=== PATIENT | male | born 1955 | race Caucasian/White ===

== ENCOUNTER → 2023-08-22 | Emergency (ER) | payer OTHER, MEDICARE ==
[~2023-08-22] MED LIST: AMOX/K CLAV 875 MG TAB ONE
--- NOTE | 2023-08-22 05:19 | EDPHYS ---
Physician Documentation [facility] Name: Juan Puga Age: 68 yrs Sex: Male : 1955 Arrival Date: 08/22/2023 Time: 04:53 Bed IW1 Private MD: ED Physician Rmaan Presley HPI: 08/22 05:22 This 68 yrs old Male presents to ER via Ambulatory with complaints of Jaw ec2 Pain, Toothache, Facial Swelling. 05:22 Patient arrives today for evaluation of right upper dental pain. Patient reports has ec2 been experiencing a couple days of worsening pain. States that he has noticed some redness on the face as well. Patient reports no fevers or chills, no nausea vomiting, no cough or cold symptoms. Does report a history of dental caries, previous dental extractions, most recently was on amoxicillin and had teeth pulled approximately 8 weeks ago. Patient reports that he is scheduled to have all of his teeth pulled at some point.. Historical: - Allergies: 05:08 No Known Allergies; pf1 - PMHx: 05:08 dental caries; Hypertensive disorder; Hypercholesterolemia; bladder cancer; pf1 - PSHx: 05:08 tumor removed from bladder; pf1 - Immunization history:: Adult Immunizations up to date, 3 doses of Moderna Last tetanus immunization: > 10 years ago Flu vaccine is not up to date. - Social history:: Smoking status: Patient reports the use of cigarette tobacco products, smokes one-half pack cigarettes per day, Patient/guardian denies using alcohol, street drugs. ROS: 05:22 Constitutional: as per hpi ec2 Exam: 05:22 Constitutional: GEN: NAD Head: atraumatic Eyes: EOMI Ears: External ears are normal. ec2 Mouth: Right upper gumline with erythema noted, significant dental caries noted throughout the mouth. Face: Right maxillary very small amount of erythema, no significant induration, no tenderness to palpation. CV: regular rate LUNGS: no respiratory distress ABD: non-distended SKIN: no evidence of rashes MSK: no evidence of trauma NEURO: moves all extremities equally Vital Signs: 05:00 BP 162 / 88; Pulse 87; Resp 16; Temp 97; Pulse Ox 100% on R/A; Weight 77.11 kg; Height pf1 5 ft. 11 in. ; Pain 5/10; 05:00 Body Mass Index 23.71 (77.11 kg, 180.34 cm) pf1 05:00 Pain Scale: Adult pf1 MDM: 05:17 Patient medically screened. ec2 05:22 Data reviewed: vital signs. ED course: Patient arrives today for evaluation of dental ec2 concerns. Examination remarkable for HEENT findings as noted above. Will start the patient on Augmentin and have him follow-up with a dentist. Suspect dental abscess causing patient's findings today. I considered other processes such as deep space infections, maxillary abscesses, patient otherwise without systemic signs and symptoms and I do not feel he would benefit from any lab work such as CBC or BMP and do not feel he has been for many CT scan of the face. Patient discharged home, return precautions given. . Administered Medications: 05:24 Drug: Amoxicillin-Clavulanate PO 875 mg PO once Route: PO; pf1 05:30 Follow up: Response: No adverse reaction pf1 Disposition Summary: 08/22/23 05:18 Discharge Ordered Notes: Location: Home ec2 Condition: Stable ec2 Diagnosis - Dental Abscess ec2 Followup: ec2 - With: Private Physician - When: - Reason: Re-evaluation by your physician Discharge Instructions: - Discharge Summary Sheet ec2 - Dental Abscess, [id number] ec2 Forms: - Medication Reconciliation Form ec2 - Thank You Letter ec2 - Antibiotic Education ec2 - Prescription Opioid Use ec2 - Patient Portal Instructions ec2 - Leadership Thank You Letter ec2 Prescriptions: - Augmentin 875-125 mg Oral Tablet - take 1 tablet ORAL route every 12 hours for 10 days; 20 tablet; Refills: 0, ec2 Product Selection Permitted Signatures: Lynsey Gonzales RN RN pf1 Raman Presley MD MD ec2
--- NOTE | 2023-08-22 05:19 | ER ---
Nurse's Notes [facility] Name: Juan Puga Age: 68 yrs Sex: Male : 1955 Arrival Date: 08/22/2023 Time: 04:53 Bed IW1 Private MD: Diagnosis: Dental Abscess Presentation: 08/22 05:00 Chief complaint: Patient states: right upper tooth pain 5 with swelling that radiates pf1 to right ear,onset 2 days. Patient stated completed antibiotics for tooth infection on July 06, 2023. Patient stated took Tylenol 325mg at 0100 this AM. Coronavirus screen: Vaccine status: Client denies travel out of the [place] in the last 14 days. At this time, the client does not indicate any symptoms associated with coronavirus-19. Ebola Screen: Patient negative for fever greater than or equal to 101.5 degrees Fahrenheit, and additional compatible Ebola Virus Disease symptoms. Initial Sepsis Screen: Does the patient meet any 2 criteria? No. Patient's initial sepsis screen is negative. Does the patient have a suspected source of infection? No. Patient's initial sepsis screen is negative. Risk Assessment: Do you want to hurt yourself or someone else? Patient reports no desire to harm self or others. 05:00 Method Of Arrival: Ambulatory pf1 05:00 Acuity: CESILIA 5 pf1 Triage Assessment: 05:15 General: see nurse assessment. pf1 Historical: - Allergies: 05:08 No Known Allergies; pf1 - PMHx: 05:08 dental caries; Hypertensive disorder; Hypercholesterolemia; bladder cancer; pf1 - PSHx: 05:08 tumor removed from bladder; pf1 - Immunization history:: Adult Immunizations up to date, 3 doses of Moderna Last tetanus immunization: > 10 years ago Flu vaccine is not up to date. - Social history:: Smoking status: Patient reports the use of cigarette tobacco products, smokes one-half pack cigarettes per day, Patient/guardian denies using alcohol, street drugs. Screenin:14 [facility] ED Fall Risk Assessment (Adult) History of falling in the last 3 months, pf1 including since admission No falls in past 3 months (0 pts) Confusion or Disorientation No (0 pts) Intoxicated or Sedated No (0 pts) Impaired Gait No (0 pts) Mobility Assist Device Used No (0 pt) Altered Elimination No (0 pt) Score/Fall Risk Level 0 - 2 = Low Risk Oriented to surroundings, Maintained a safe environment, Educated pt \T\ family on fall prevention, incl call for assistance when getting out of bed, Assessed \T\ reinforced patient's understanding of fall precautions, Provided non-skid footwear, Hourly rounding (assess needs \T\ fall precautionary measures) done, Used ambulatory aids as needed (educated on \T\ assisted with), Used gait belt as appropriate. Abuse screen: Denies threats or abuse. Nutritional screening: No deficits noted. Tuberculosis screening: No symptoms or risk factors identified. Assessment: 05:12 General: Appears in no apparent distress. comfortable, well groomed, well developed, pf1 Behavior is calm, cooperative, appropriate for age, quiet. Pain: Complains of pain in right upper mouth that radiates to right ear. 05:13 Pain: Pain currently is 5 out of 10 on a pain scale. Pain began 2-3 days ago. Neuro: No pf1 deficits noted. Level of Consciousness is awake, alert, obeys commands, Oriented to person, place, time, situation. Cardiovascular: No deficits noted. Capillary refill < 3 seconds Patient's skin is warm and dry. Respiratory: No deficits noted. Airway is patent Respiratory effort is even, unlabored, Respiratory pattern is regular, symmetrical. GI: No deficits noted. No signs and/or symptoms were reported involving the gastrointestinal system. : No deficits noted. No signs and/or symptoms were reported regarding the genitourinary system. EENT: Reports pain in right upper mouth that radiate to right ear. Derm: No deficits noted. No signs and/or symptoms reported regarding the dermatologic system. Vital Signs: 05:00 BP 162 / 88; Pulse 87; Resp 16; Temp 97; Pulse Ox 100% on R/A; Weight 77.11 kg; Height pf1 5 ft. 11 in. ; Pain 5/10; 05:00 Body Mass Index 23.71 (77.11 kg, 180.34 cm) pf1 05:00 Pain Scale: Adult pf1 ED Course: 04:56 Patient arrived in ED. [id number] 05:04 Raman Presley MD is Attending Physician. ec2 05:08 Triage completed. pf1 05:15 Patient has correct armband on for positive identification. pf1 05:15 Arm band placed on right wrist. pf1 05:15 No provider procedures requiring assistance completed. Patient did not have IV access pf1 during this emergency room visit. 05:30 Provided Education on: prescription . pf1 Administered Medications: 05:24 Drug: Amoxicillin-Clavulanate PO 875 mg PO once Route: PO; pf1 05:30 Follow up: Response: No adverse reaction pf1 Medication: 05:30 VIS not applicable for this client. pf1 Outcome: 05:18 Discharge ordered by . ec2 05:30 Discharged to home ambulatory, pf1 05:30 Condition: stable 05:30 Discharge instructions given to patient, Instructed on discharge instructions, follow up and referral plans. Demonstrated understanding of instructions, follow-up care, medications, Prescriptions given X 1, 05:31 Patient left the ED. pf1 Signatures: Ruth Paniagua [email or web address] Lynsey Gonzales, ZAYDA RN pf1 Raman Presley MD MD ec2 Corrections: (The following items were deleted from the chart) 05:12 05:00 Chief complaint: Patient states: right upper tooth pain 5,onset 2 days. Patient pf1 stated completed antibiotics for tooth infection on July 06, 2023. Patient stated took Tylenol 325mg at 0100 this AM. pf1
[2023-08-22 06:34] VITALS: BP 162/88; TEMP 97; O2SAT 100
== END ==
LOC: ER 04:53
DX: K04.7 Periapical abscess without sinus (principal); F17.210 Nicotine dependence, cigarettes, uncomplicated
CPT/HCPCS: 99283

== ENCOUNTER 2024-03-21 01:41 | Inpatient (IN) | payer OTHER, MEDICARE ==
[2024-03-21] MEDS ORDERED: ONDANSETRON 4 MG/2 ML VIAL ONE (02:13)
[2024-03-21] MEDS ORDERED: METOCLOPRAMIDE 10 MG/2mL INJ ONE (02:13)
[2024-03-21] MEDS ORDERED: MORPHINE 4 MG/ML SYR ONE (02:13)
[2024-03-21] MEDS ORDERED: NA CHLORIDE 0.9% 1,000 ML ONE ×2 (02:13→04:36)
[2024-03-21] MEDS ORDERED: FAMOTIDINE 20 MG/2 ML VIAL IV ONE (02:13)
[2024-03-21] MEDS ORDERED: NA CHLORIDE 0.9% 100 ML ONE (02:14)
[2024-03-21 02:47] LABS: Absolute Lymphocytes (CBC) 1.4 K/uL (0.7-4.9); Absolute Monocytes 0.5 K/uL (0.1-1.3); Absolute Neutrophil 16.2 K/uL (1.8-8.0); Basophils % 0.1 % (0-1.3); Hematocrit 46.8 % (39.6-49.0); Hemoglobin 15.1 g/dL (13.6-17.9); Lymphocytes % 7.9 % (15.3-44.8); MCH 29.5 pg (27.0-35.0); MCHC 32.2 g/dL (32.0-36.0); MCV 91.5 fL (80-100); MPV 10.2 fL (7.6-11.3); Monocytes % 2.7 % (3.3-12.3); Neutrophils % 89.3 % (41.7-73.7); Platelets 310 thou/uL (152-406); RBC Red Blood Cell Count 5.11 M/uL (4.33-5.43); Red Cell Distribution Width 15.1 % (12.1-15.2)
[2024-03-21 02:56] LABS: Albumin 3.7 g/dL (3.4-5.0); Anion Gap 11.2 mEq/L (5.0-15.0); Globulin 3.6 g/dL (2.3-3.5); Potassium 4.2 mEq/L (3.5-5.1); Protein, Total 7.3 g/dL (6.4-8.2)
[2024-03-21 04:05] LABS: Specific Gravity 1.024 (1.005-1.030); Sqamous Epithelial <5 /HPF (None Seen); Urine Bacteria None Seen /HPF (<20); Urine Bilirubin NEGATIVE (Negative); Urine Blood Negative (Negative); Urine Clarity Clear (Clear); Urine Color Yellow (Yellow); Urine Culture Reflex Order NOT NEEDED; Urine Glucose NEGATIVE (Negative); Urine Ketones NEGATIVE (Negative); Urine Microscopic Reflex YN ORDER UMIC; Urine Mucus Slight /HPF (None Seen); Urine Nitrite NEGATIVE (Negative); Urine Protein TRACE (Negative); Urine RBC None Seen /HPF (None Seen); Urine Urobilinogen Normal (Normal); Urine WBC <5 /HPF (<5); Urine pH 6.5 (5.0-7.0)
--- NOTE | 2024-03-21 04:09 | EDPHYS ---
Physician Documentation [facility] Name: Juan Puga Age: 68 yrs Sex: Male : 1955 Arrival Date: 03/21/2024 Time: 01:41 Bed 6 Private MD: ED Physician Jalen Cunha HPI: 03/21 02:02 This 68 yrs old Male presents to ER via Ambulatory with complaints of sp4 Nausea/Vomiting, Constipation. 04:09 2-year-old male with past medical history of bladder cancer hypercholesterolemia and sp4 hypertension presents with acute onset of diffuse abdominal pain associated with profuse vomiting. Patient states that Wednesday 5 days ago patient had 6 implants placed in the mandibular location for the denture. Then he has been taken clindamycin ibuprofen and also dexamethasone prescribed by the Oral Surgeon . Historical: - Allergies: 01:56 Amoxicillin; jb4 - PMHx: 01:56 Bladder cancer; DENTAL CARIES; Hypercholesterolemia; Hypertensive disorder; jb4 - PSHx: 01:56 Tumor removed from Bladder; jb4 - Immunization history:: Adult Immunizations up to date. - Infectious Disease History:: Denies. - Social history:: Smoking status: Patient reports the use of cigarette tobacco products, denies chronic smoking, but will smoke occasionally. - Family history:: not pertinent. ROS: 04:10 Constitutional: Negative for fever, chills, and weight loss, positive abdominal pain sp4 positive vomiting positive constipation 04:10 All other systems are negative, Exam: 04:10 Constitutional: This is a well developed, well nourished patient who is awake, alert, sp4 acutely vomiting on arrival, dry heaving. Appearing but nontoxic-appearing Head/Face: Normocephalic, atraumatic. Eyes: Pupils equal round and reactive to light, extra-ocular motions intact. Lids and lashes normal. Conjunctiva and sclera are not injected. Cornea within normal limits. Periorbital areas with no swelling, redness, or edema. ENT: Nares patent. No nasal discharge, no septal abnormalities noted. Tympanic membranes are normal and external auditory canals are clear. Oropharynx with no redness, swelling, or masses, exudates, or evidence of obstruction, uvula midline. Mucous membranes moist. Neck: Trachea midline, no thyromegaly or masses palpated, and no cervical lymphadenopathy. Supple, full range of motion without nuchal rigidity, or vertebral point tenderness. Chest/axilla: Normal chest wall appearance and motion. Nontender with no deformity. No lesions are appreciated. Cardiovascular: Regular rate and rhythm with a normal S1 and S2. No gallops, murmurs, or rubs. Normal PMI, no JVD. No pulse deficits. Respiratory: Lungs have equal breath sounds bilaterally, clear to auscultation and percussion. No rales, rhonchi or wheezes noted. No increased work of breathing, no retractions or nasal flaring. Abdomen/GI: Soft, with normal bowel sounds. No distension or tympany. No guarding positive abdominal tenderness bilateral lower quadrants Back: No spinal tenderness. No costovertebral tenderness. Skin: Warm, dry with normal turgor. Normal color with no rashes, no lesions, and no evidence of cellulitis. MS/ Extremity: Pulses equal, no cyanosis. Neurovascular intact. Full, normal range of motion. Neuro: Awake and alert, GCS 15, oriented to person, place, time, and situation. Cranial nerves II-XII grossly intact. Motor strength 5/5 in all extremities. Sensory grossly intact. 05:46 ECG was reviewed by the Attending Physician. EKG at 0 519 sinus rhythm with premature sp4 atrial complexes. Vital Signs: 01:53 BP 128 / 75; Pulse 92; Resp 16; Temp 97.2(TE); Pulse Ox 98% ; Weight 73.48 kg; Height 5 jb4 ft. 11 in. (R); Pain 7/10; 03:16 BP 105 / 58; Pulse 82; Resp 16; Temp 97.2; Pulse Ox 98% ; Pain 0/10; bm8 05:32 BP 125 / 67; Pulse 89; Resp 15; Temp 97.2; Pulse Ox 96% ; Pain 2/10; bm8 01:53 Body Mass Index 22.59 (73.48 kg, 180.34 cm) jb4 01:53 Pain Scale: Adult jb4 03:16 Pain Scale: Adult bm8 05:32 Pain Scale: Adult bm8 Leonidas Coma Score: 03:16 Eye Response: spontaneous(4). Motor Response: obeys commands(6). Verbal Response: bm8 oriented(5). Total: 15. 04:10 Eye Response: spontaneous(4). Motor Response: obeys commands(6). Verbal Response: sp4 oriented(5). Total: 15. 05:32 Eye Response: spontaneous(4). Motor Response: obeys commands(6). Verbal Response: bm8 oriented(5). Total: 15. MDM: 02:07 Patient medically screened. sp4 04:05 ED course: THIS REPORT CONTAINS FINDINGS THAT MAYBE CRITICAL TO PATIENT CARE: The sp4 findings were verbally discussed via telephone conference with Dr. Jalen Cunha at 3:54 AM CDT on 03/21/2024. Electronically signed by: Eugenio Jack MD 03/21/2024 03:58 AM CDT RP End of Addendum EXAM DESCRIPTION: Abdomen Pelvis W Contrast 03/21/2024 3:35 AM CDT CLINICAL HISTORY: 68 years, Male, ABD PAIN COMPARISON: None PROCEDURE: Contrast-enhanced images of the abdomen and pelvis were performed from the lung bases to the ischial tuberosities after the administration of IV contrast. In addition multiplanar reformats in the coronal and sagittal plane were obtained and reviewed. An individualized dose optimization technique, Automated Exposure Control, was utilized for the performed procedure. FINDINGS: Lung bases: The lung bases demonstrate to be clear. Liver: The liver demonstrated presence of decreased attenuation corresponding to mild fatty infiltration. Gallbladder: The gallbladder demonstrate to be normal. Adrenal glands: The adrenal glands demonstrate to be normal. Pancreas: The pancreas demonstrate to be normal. Spleen: The spleen demonstrate to be within normal limits. Kidneys: The kidneys demonstrate normal uptake of contrast media. There is a focus of the calcification lower pole left kidney measuring 12.4 mm on image 40, extending near the surface of the kidney with this correspond to nephrolithiasis and/or dystrophic calcification from a disrupted cyst could be of consideration. GI: Grossly the unopacified stomach, small bowel and large bowel demonstrate to be within normal limits. No evidence for bowel dilatation and/or free air. The appendix is normal. The left-sided colon/sigmoid colon demonstrated presence of diverticulosis with the presence of focal area of abnormal mucosal thickening and pericolonic haziness mid proximal sigmoid colon on axial image 68- 74, corresponding to acute diverticulitis. There is no evidence for abscess formation. There is tiny amount of free air on axial image 74-60 perhaps corresponding localized microperforation. : The urinary bladder demonstrate to be unremarkable. Genitalia: The prostate gland is normal. Abdominal aorta: The aorta demonstrated presence of minimal atherosclerotic disease extending into the aortic bifurcation and iliac arteries. There is a infrarenal abdominal aortic aneurysm measuring 2.6 x 2.7 cm on image 41. Retroperitoneum:There is no retroperitoneal lymphadenopathy. There is a small trace of the fluid along the pelvis on axial image 64 and rectovesical space on image 76. Bones: The bones demonstrate to be demineralized. The lumbar spine demonstrate minimal degenerative changes at L5/S1. Soft tissues: The soft tissues demonstrate to be unremarkable. IMPRESSION: Acute diverticulitis mid proximal sigmoid colon with tiny amount of free air perhaps corresponding localized microperforation. No evidence for abscess formation. Small trace of the fluid along the pelvis. 2.6 x 2.7 cm infrarenal abdominal aortic aneurysm. Recommend follow-up every 5 years. 12.4 mm calcification lower pole left kidney, extending near the surface of the kidney with this correspond to nephrolithiasis and/or dystrophic calcification from a disrupted cyst could be of consideration. Electronically signed by: Eugenio Jack MD 03/21/2024 03:44 AM . 04:19 Differential diagnosis: Nonspecific abd pain, gastritis, pancreatitis, diverticulitis, sp4 viral gastroenteritis, gastroenteritis. Data reviewed: vital signs, nurses notes, lab test result(s), radiologic studies, CT scan, plain films. Consideration of Admission/Observation Escalation of care including admission/observation considered. 03/21 02:08 Order name: CBC with Diff; Complete Time: 05:46 [facility] 03/21 02:08 Order name: CMP; Complete Time: 04:02 4 03/21 02:08 Order name: Lipase; Complete Time: 04:02 sp4 03/21 02:08 Order name: Urinalysis w/ reflexes; Complete Time: 04:36 4 03/21 02:50 Order name: Manual Differential; Complete Time: 05:46 EDMS 03/21 04:12 Order name: Type And Screen 03/21 04:12 Order name: PT-INR; Complete Time: 05:46 4 03/21 02:08 Order name: CT Abd/Pelvis - IV Contrast Only [facility] 03/21 04:12 Order name: Chest Single View XRAY 4 03/21 04:12 Order name: EKG; Complete Time: 04:13 sp4 03/21 04:35 Order name: CONS Physician Consult [facility] 03/21 02:08 Order name: IV Saline Lock; Complete Time: 02:11 sp4 03/21 02:08 Order name: Labs collected and sent; Complete Time: 02:11 sp4 03/21 04:01 Order name: NPO; Complete Time: 05:44 sp4 03/21 04:12 Order name: EKG - Nurse/Tech; Complete Time: 05:32 sp4 03/21 04:44 Order name: Misc. Order: RECOLLECT TYPE AND SCREEN; Complete Time: 04:53 rv1 EC:46 Rate is 90 beats/min. Rhythm is regular, Normal Sinus Rhythm with PACs. QRS Toyah is sp4 Normal. OR interval is normal. QRS interval is normal. QT interval is normal. No Q waves. T waves are Normal. No ST changes noted. Clinical impression: No evidence of ischemia. Interpreted by me. Reviewed by me. Administered Medications: 02:18 Drug: NS 0.9% IV 1000 ml IV at 1 bolus Per protocol; 1000 mL bolus Route: IV; Rate: 1 bm8 bolus; Site: right forearm; 03:19 Follow up: Response: No adverse reaction; IV Status: Completed infusion; IV Intake: bm8 1000ml 02:18 Drug: Famotidine IVP 20 mg IVP once; dilute with 10 mL 0.9% NaCl; give over 2 minutes bm8 Route: IVP; Site: right forearm; 03:19 Follow up: Response: No adverse reaction bm8 02:18 Drug: metoCLOPramide IVP 10 mg IVP once; over 1 to 2 minutes Route: IVP; Site: right bm8 forearm; 03:19 Follow up: Response: No adverse reaction bm8 02:19 Drug: Ondansetron IVP 8 mg IVP once; over 2 minutes Route: IVP; Site: right forearm; bm8 03:20 Follow up: Response: No adverse reaction bm8 02:19 Drug: morphine IVP or IV 4 mg IVP once over 4 mins Route: IVP; Infused Over: 4 mins; bm8 Site: right forearm; 03:20 Follow up: Response: No adverse reaction bm8 04:54 Drug: Rocephin - Rocephin (cefTRIAXone) IVPB 1 grams IVPB once over 30 mins; (mix in 50 bm8 mL NS) Route: IVPB; Infused Over: 30 mins; Site: left forearm; 05:36 Follow up: Response: No adverse reaction; IV Status: Completed infusion; IV Intake: [id number] 04:54 Drug: metroNIDAZOLE IVPB 500 mg 100 ml IVPB at 200 ml/hr once over 30 mins Volume: 100 bm8 ml; Route: IVPB; Rate: 200 ml/hr; Infused Over: 30 mins; Site: right forearm; 05:35 Follow up: Response: No adverse reaction; IV Status: Completed infusion; IV Intake: bm8 100ml 04:54 Drug: NS 0.9% IV 1000 ml IV at 1 bolus Per protocol; 1000 mL bolus Route: IV; Rate: 1 bm8 bolus; Site: right forearm; 05:35 Follow up: Response: No adverse reaction; IV Status: Completed infusion; IV Intake: bm8 1000ml 05:32 Drug: Albumin IVPB 25 grams 100 ml IVPB once; (Note: Albumin 25% concentration) Volume: bm8 100 ml; Route: IVPB; Site: left forearm; 05:36 Follow up: Response: No adverse reaction; IV Status: Completed infusion; IV Intake: bm8 100ml 05:32 Drug: Lactated Ringers Solution IV 1000 ml IV at 150 ml/hr continuous Route: IV; Rate: bm8 150 ml/hr; Site: right forearm; 05:36 Follow up: Response: No adverse reaction; IV Status: Infusion continued upon admission bm8 Disposition Summary: 03/21/24 04:08 Hospitalization Ordered Notes: Hospitalization Status: Inpatient Admission sp4 Condition: Stable sp4 Problem: new sp4 Symptoms: have improved sp4 Bed/Room Type: Standard sp4 Provider: Phillip Roy(03/21/24 04:20) sp4 Location: Intensive Care Unit(03/21/24 05:51) jb4 Room Assignment: 6-(03/21/24 05:51) jb4 Diagnosis - Diverticulitis of intestine, part unspecified, with perforation and abscess sp4 - Acute sigmoid diverticulitis with microperforation without abscess sp4 Forms: - Medication Reconciliation Form sp4 - SBAR form sp4 - Leadership Thank You Letter sp4 Signatures: Dispatcher [employer] Pablo Thomas RN RN jb4 Evelina Smith rv1 Jalen Cunha MD MD sp4 Hernando Bateman RN RN bm8 Corrections: (The following items were deleted from the chart) 02:08 02:08 CBC+H.LAB.BRZ ordered. EDMS EDMS 02:08 02:08 COMPREHENSIVE METABOLIC PANEL+C.LAB.BRZ ordered. EDMS EDMS 02:08 02:08 LIPASE+C.LAB.BRZ ordered. EDMS EDMS 02:08 02:08 Urinalysis+U.LAB.BRZ ordered. EDMS EDMS 04:20 04:08 Lise Poole sp4 sp4 05:51 04:08 Telemetry/MedSurg (Inpatient) sp4 jb4 05:51 04:08 sp4 jb4
--- NOTE | 2024-03-21 04:09 | ER ---
Nurse's Notes [facility] Name: Juan Puga Age: 68 yrs Sex: Male : 1955 Arrival Date: 03/21/2024 Time: 01:41 Bed 6 Private MD: Diagnosis: Diverticulitis of intestine, part unspecified, with perforation and abscess;Acute sigmoid diverticulitis with microperforation without abscess Presentation: 03/21 01:53 Chief complaint: Patient states: I have had oral surgery recently and now I am cramping jb4 and vomiting. I think I may have a blockage in my intestines. Coronavirus screen: At this time, the client does not indicate any symptoms associated with coronavirus-19. Ebola Screen: No symptoms or risks identified at this time. Initial Sepsis Screen: Does the patient meet any 2 criteria? HR > 90 bpm. Yes Does the patient have a suspected source of infection? No. Patient's initial sepsis screen is negative. Risk Assessment: Do you want to hurt yourself or someone else? Patient reports no desire to harm self or others. Onset of symptoms was March 21, 2024. Transition of care: patient was not received from another setting of care. 01:53 Method Of Arrival: Ambulatory jb4 01:53 Acuity: CESILIA 3 jb4 Triage Assessment: 06:01 GI: Reports cramping, nausea, vomiting. bm8 Historical: - Allergies: 01:56 Amoxicillin; jb4 - PMHx: 01:56 Bladder cancer; DENTAL CARIES; Hypercholesterolemia; Hypertensive disorder; jb4 - PSHx: 01:56 Tumor removed from Bladder; jb4 - Immunization history:: Adult Immunizations up to date. - Infectious Disease History:: Denies. - Social history:: Smoking status: Patient reports the use of cigarette tobacco products, denies chronic smoking, but will smoke occasionally. - Family history:: not pertinent. Screenin:16 [facility] ED Fall Risk Assessment (Adult) History of falling in the last 3 months, bm8 including since admission No falls in past 3 months (0 pts) Confusion or Disorientation No (0 pts) Intoxicated or Sedated No (0 pts) Impaired Gait No (0 pts) Mobility Assist Device Used Yes (1 pt) Altered Elimination No (0 pt) Score/Fall Risk Level 0 - 2 = Low Risk Oriented to surroundings, Maintained a safe environment, Educated pt \T\ family on fall prevention, incl call for assistance when getting out of bed, Assessed \T\ reinforced patient's understanding of fall precautions, Hourly rounding (assess needs \T\ fall precautionary measures) done, Used ambulatory aids as needed (educated on \T\ assisted with). Abuse screen: Denies threats or abuse. Nutritional screening: No deficits noted. Tuberculosis screening: No symptoms or risk factors identified. Assessment: 03:16 Reassessment: Patient appears in no apparent distress at this time. Patient and/or bm8 family updated on plan of care and expected duration. Pain level reassessed. Patient is alert, oriented x 3, equal unlabored respirations, skin warm/dry/pink. Patient denies pain at this time. Patient states feeling better. Patient states symptoms have improved. General: Appears in no apparent distress. comfortable, Behavior is calm, cooperative, appropriate for age, quiet. Pain: Denies pain. Neuro: No deficits noted. Level of Consciousness is awake, alert, obeys commands, Oriented to person, place, time. Cardiovascular: Denies chest pain. Cardiovascular: Capillary refill < 3 seconds Patient's skin is warm and dry. Respiratory: Airway is patent Respiratory effort is even, unlabored, Respiratory pattern is regular, symmetrical. GI: Abdomen is flat, non-distended, Bowel sounds present X 4 quads. Patient currently denies nausea, pain, vomiting. : No signs and/or symptoms were reported regarding the genitourinary system. EENT: No signs and/or symptoms were reported regarding the EENT system. Derm: No signs and/or symptoms reported regarding the dermatologic system. Musculoskeletal: No signs and/or symptoms reported regarding the musculoskeletal system. 05:32 Reassessment: Patient appears in no apparent distress at this time. Patient and/or bm8 family updated on plan of care and expected duration. Pain level reassessed. Patient is alert, oriented x 3, equal unlabored respirations, skin warm/dry/pink. pt informed of results and need for admission for emergent surgery this morning. PT clearly understood situation and has agreed to continued plan of care. Patient denies pain at this time. Pain: Pain currently is 2 out of 10 on a pain scale. Vital Signs: 01:53 BP 128 / 75; Pulse 92; Resp 16; Temp 97.2(TE); Pulse Ox 98% ; Weight 73.48 kg; Height 5 jb4 ft. 11 in. (R); Pain 7/10; 03:16 BP 105 / 58; Pulse 82; Resp 16; Temp 97.2; Pulse Ox 98% ; Pain 0/10; bm8 05:32 BP 125 / 67; Pulse 89; Resp 15; Temp 97.2; Pulse Ox 96% ; Pain 2/10; bm8 01:53 Body Mass Index 22.59 (73.48 kg, 180.34 cm) jb4 01:53 Pain Scale: Adult jb4 03:16 Pain Scale: Adult bm8 05:32 Pain Scale: Adult bm8 Vitals: 05:32 Cardiac Rhythm Assessment Sinus rhythm W/PAC's. bm8 [place] Coma Score: 03:16 Eye Response: spontaneous(4). Motor Response: obeys commands(6). Verbal Response: bm8 oriented(5). Total: 15. 04:10 Eye Response: spontaneous(4). Motor Response: obeys commands(6). Verbal Response: sp4 oriented(5). Total: 15. 05:32 Eye Response: spontaneous(4). Motor Response: obeys commands(6). Verbal Response: bm8 oriented(5). Total: 15. ED Course: 01:45 Patient arrived in ED. gm2 01:56 Triage completed. jb4 01:56 Arm band placed on right wrist. jb4 02:02 Jalen Cunha MD is Attending Physician. sp4 02:05 Nell England RN is Primary Nurse. kd3 02:11 Inserted saline lock: 20 gauge in right forearm, using aseptic technique. Blood kd3 collected. Flushed with 10 mL NS. 03:16 Patient has correct armband on for positive identification. Placed in gown. Bed in low bm8 position. Call light in reach. Side rails up X 1. Client placed on continuous cardiac and pulse oximetry monitoring. NIBP monitoring applied. Pulse ox on. NIBP on. Door closed. Noise minimized. Lights dimmed. Warm blanket given. Pillow given. Verbal reassurance given. Head of bed lowered. 03:16 No provider procedures requiring assistance completed. Urine collected: clean catch bm8 specimen, clear. 03:19 CT Abd/Pelvis - IV Contrast Only In Process Unspecified. EDMS 04:08 Lise Poole is Hospitalizing Provider. sp4 04:19 Hospitalizing Provider role handed off by Lise Poole sp4 04:19 Phillip Roy MD is Hospitalizing Provider. sp4 04:34 Chest Single View XRAY In Process Unspecified. EDMS 04:54 Inserted saline lock: 18 gauge in left forearm, using aseptic technique. Blood bm8 collected. Flushed with 10 mL NS. 05:32 Provided Education on: need for admission. bm8 05:32 Patient admitted, IV remains in place. bm8 Administered Medications: 02:18 Drug: NS 0.9% IV 1000 ml IV at 1 bolus Per protocol; 1000 mL bolus Route: IV; Rate: 1 bm8 bolus; Site: right forearm; 03:19 Follow up: Response: No adverse reaction; IV Status: Completed infusion; IV Intake: bm8 1000ml 02:18 Drug: Famotidine IVP 20 mg IVP once; dilute with 10 mL 0.9% NaCl; give over 2 minutes bm8 Route: IVP; Site: right forearm; 03:19 Follow up: Response: No adverse reaction bm8 02:18 Drug: metoCLOPramide IVP 10 mg IVP once; over 1 to 2 minutes Route: IVP; Site: right bm8 forearm; 03:19 Follow up: Response: No adverse reaction bm8 02:19 Drug: Ondansetron IVP 8 mg IVP once; over 2 minutes Route: IVP; Site: right forearm; bm8 03:20 Follow up: Response: No adverse reaction bm8 02:19 Drug: morphine IVP or IV 4 mg IVP once over 4 mins Route: IVP; Infused Over: 4 mins; bm8 Site: right forearm; 03:20 Follow up: Response: No adverse reaction bm8 04:54 Drug: Rocephin - Rocephin (cefTRIAXone) IVPB 1 grams IVPB once over 30 mins; (mix in 50 bm8 mL NS) Route: IVPB; Infused Over: 30 mins; Site: left forearm; 05:36 Follow up: Response: No adverse reaction; IV Status: Completed infusion; IV Intake: 15dvsu6 04:54 Drug: metroNIDAZOLE IVPB 500 mg 100 ml IVPB at 200 ml/hr once over 30 mins Volume: 100 bm8 ml; Route: IVPB; Rate: 200 ml/hr; Infused Over: 30 mins; Site: right forearm; 05:35 Follow up: Response: No adverse reaction; IV Status: Completed infusion; IV Intake: bm8 100ml 04:54 Drug: NS 0.9% IV 1000 ml IV at 1 bolus Per protocol; 1000 mL bolus Route: IV; Rate: 1 bm8 bolus; Site: right forearm; 05:35 Follow up: Response: No adverse reaction; IV Status: Completed infusion; IV Intake: bm8 1000ml 05:32 Drug: Albumin IVPB 25 grams 100 ml IVPB once; (Note: Albumin 25% concentration) Volume: bm8 100 ml; Route: IVPB; Site: left forearm; 05:36 Follow up: Response: No adverse reaction; IV Status: Completed infusion; IV Intake: bm8 100ml 05:32 Drug: Lactated Ringers Solution IV 1000 ml IV at 150 ml/hr continuous Route: IV; Rate: bm8 150 ml/hr; Site: right forearm; 05:36 Follow up: Response: No adverse reaction; IV Status: Infusion continued upon admission bm8 Medication: 03:16 VIS not applicable for this client. bm8 Intake: 03:19 IV: 1000ml; Total: 1000ml. bm8 05:35 IV: 1000ml; Total: 2000ml. bm8 05:35 IV: 100ml; Total: 2100ml. bm8 05:36 IV: 100ml; Total: 2200ml. bm8 05:36 IV: 50ml; Total: 2250ml. bm8 Outcome: 04:08 Decision to Hospitalize by Provider. spEmanuel 06:00 Admitted to ICU accompanied by nurse, via stretcher, room ICU 6, on monitor, with bm8 chart, Report called to ICU NURSE ZAYDA YOUSIF 06:00 Condition: stable 06:00 Instructed on the need for admit, Demonstrated understanding of instructions, follow-up care, 06:01 Patient left the ED. bm8 Signatures: Dispatcher [employer] EDMS Pablo Cain, RN RN [id number] Nell England RN RN [id number] Jalen Cunha MD MD sp4 Rosalva Martines gm2 Hernando Bateman RN RN bm8 Corrections: (The following items were deleted from the chart) 02:04 01:53 Initial Sepsis Screen: Does the patient meet any 2 criteria? No. Patient's jb4 initial sepsis screen is negative. Does the patient have a suspected source of infection? No. Patient's initial sepsis screen is negative. jb4 02:04 01:53 BP 128 / 75; Resp 16bpm; Temp 97.2F Temporal; 73.48 kg; Height 5 ft. 11 in. jb4 Reported; BMI: 22.5; Pain 7/10, Adult; jb4
[2024-03-21] MEDS ORDERED: CEFTRIAXONE 1000 MG/VIAL ONE (04:35)
[2024-03-21] MEDS ORDERED: METRONIDAZOLE 500mg IVPB 500 MG/100 ML BAG IV ONE (04:36)
[2024-03-21] MEDS ORDERED: ALBUMIN HUMAN 25% 100 ML IV ONE (04:36)
[2024-03-21] MEDS ORDERED: Ringers Lactate 1,000 ML IV ONE (04:36)
[2024-03-21 04:39] LABS: Band Neutrophils 15 % (0-1); Blood Morphology Comment NOT SEEN (NOT SEEN); Differential Total Cells Count 100; Lymphocytes 11 % (15-42); Monocytes 2 % (0-10); Platelet Estimate ADEQ; Reactive Lymphocytes 5 %; Segmented Neutrophils 67 % (40-80)
[2024-03-21 04:41] LABS: PT Prothrombin Time 12.1 SECONDS (9.4-12.5); Protime INR 1.08
[2024-03-21] MEDS ORDERED: ONDANSETRON 4 MG/2 ML VIAL IV PRN (06:08)
[2024-03-21] MEDS: D5.45NS W/KCL 20MEQ 1,000 ML IV SCH (06:08)
[2024-03-21] MEDS ORDERED: ALBUTEROL 2.5 MG/3 ML NEB SOL NEB PRN (06:08)
[2024-03-21 06:29] VITALS: BMI 22.9
[2024-03-21] MEDS: D5 0.9 NS 1,000 ML IV SCH (07:18)
[2024-03-21] MEDS: MORPHINE 4 MG/ML SYR IV PRN (08:54)
[2024-03-21] MEDS: Levofloxacin500mg IV 500 MG/100 ML BAG IV SCH (08:54)
[2024-03-21] MEDS ORDERED: METRONIDAZOLE 500mg IVPB 500 MG/100 ML BAG IV SCH (09:00)
[2024-03-21] MEDS ORDERED: CEFTRIAXONE 1,000 MG in NA CHLORIDE 0.9% 50 ML IVPB SCH (09:00)
[2024-03-21] MEDS: ENOXAPARIN 40 MG/0.4 ML SQ SCH ×2 (09:00→17:00)
--- NOTE | 2024-03-21 12:04 | RAD REPORT ---
EXAM DESCRIPTION: ADDENDUM #1 THIS REPORT CONTAINS FINDINGS THAT MAY BE CRITICAL TO PATIENT CARE: The findings were verbally discus sed via telephone conference with Dr. Jalen Cunha at 3:54 AM CDT on 03/21/2024. Electronically signed by: Eugenio Jack MD 03/21/2024 03:58 AM CDT RP End of Addendum EXAM DESCRIPTION: Abdomen Pelvis W Contrast 03/21/2024 3:35 AM CDT CLINICAL HISTORY: 68 years, Male, ABD PAIN COMPARISON: None TECHNIQUE: Contrast-enhanced images of the abdomen and pelvis were performed from the lung bases to the ischial tuberosities after the administration of IV contrast. In addition multiplanar reformats in the coronal and sagittal plane were obtained and reviewed. An individualized dose optimization technique, Automated Exposure Control, was utilized for the perfo rmed procedure. FINDINGS: Lung bases: The lung bases demonstrate to be clear. Liver: The liver demonstrated presence of decreased attenuation corresponding to mild fatty infiltrat ion. Gallbladder: The gallbladder demonstrate to be normal. Adrenal glands: The adrenal glands demonstrate to be normal. Pancreas: The pancreas demonstrate to be normal. Spleen: The spleen demonstrate to be within normal limits. Kidneys: The kidneys demonstrate normal uptake of contrast media. There is a focus of the calcifica tion lower pole left kidney measuring 12.4 mm on image 40, extending near the surface of the kidney w ith this correspond to nephrolithiasis and/or dystrophic calcification from a disrupted cyst could be of consideration. GI: Grossly the unopacified stomach, small bowel and large bowel demonstrate to be within normal limi ts. No evidence for bowel dilatation and/or free air. The appendix is normal. The left-sided colon/si gmoid colon demonstrated presence of diverticulosis with the presence of focal area of abnormal mucos al thickening and pericolonic haziness mid proximal sigmoid colon on axial image 68-74, corresponding to acute diverticulitis. There is no evidence for abscess formation. There is tiny amount of free ai r on axial image 74-60 perhaps corresponding localized microperforation. : The urinary bladder demonstrate to be unremarkable. Genitalia: The prostate gland is normal. Abdominal aorta: The aorta demonstrated presence of minimal atherosclerotic disease extending into th e aortic bifurcation and iliac arteries. There is a infrarenal abdominal aortic aneurysm measuring 2. 6 x 2.7 cm on image 41. Retroperitoneum: There is no retroperitoneal lymphadenopathy. There is a small trace of the fluid kb ng the pelvis on axial image 64 and rectovesical space on image 76. Bones: The bones demonstrate to be demineralized. The lumbar spine demonstrate minimal degenerative c hanges at L5/S1. Soft tissues: The soft tissues demonstrate to be unremarkable. IMPRESSION: Acute diverticulitis mid proximal sigmoid colon with tiny amount of free air perhaps cor responding localized microperforation. No evidence for abscess formation. Small trace of the fluid along the pelvis. 2.6 x 2.7 cm infrarenal abdominal aortic aneurysm. Recommend follow-up every 5 years.\X200B\\X200B\\X 200B\\X200B\\X200B\\X200B\\X200B\ Reference: J Am Ryan Radiol 2013;10 (10):789-794 12.4 mm calcification lower pole left kidney, extending near the surface of the kidney with this bernard espond to nephrolithiasis and/or dystrophic calcification from a disrupted cyst could be of considera tion. Electronically signed by: Eugenio Jack MD 03/21/2024 03:44 AM CDT RP Due to temporary technical issues with the PACS/Fluency reporting system, reports are being signed by the in house radiologist without review as a courtesy to ensure prompt reporting. The interpreting r adiologist is fully responsible for the content of the report.
--- NOTE | 2024-03-21 12:29 | RAD REPORT ---
EXAM DESCRIPTION: XR CHEST 1 VIEW CLINICAL HISTORY: Pre operative COMPARISON: None FINDINGS: LUNGS/PLEURAL SPACES: The lungs are clear. No pleural effusion. No pneumothorax. HEART/MEDIASTINUM: Within normal range. BONES/UPPER ABDOMEN/SOFT TISSUES: Unremarkable. IMPRESSION: No radiographic evidence of active pulmonary process. Electronically signed by: Ronna Wilson MD 03/21/2024 05:40 AM CDT RP Due to temporary technical issues with the PACS/Fluency reporting system, reports are being signed by the in house radiologist without review as a courtesy to ensure prompt reporting. The interpreting r adiologist is fully responsible for the content of the report
[2024-03-21] MEDS: METRONIDAZOLE 500mg IVPB 500 MG/100 ML BAG IV SCH (13:31)
--- NOTE | 2024-03-21 15:16 | CON ---
Date of Consultation: 03/21/2024 Diagnosis: Perforated diverticulitis. History Of Present Illness: This is a case of a 68-year-old patient who comes to us with left abdomi nal pain. A few days ago, it got worse. He came to the ER, found to have a proximal sigmoid colon, colitis with small amount of fluid, possible contained perforation of diverticulitis. He has an oral surgery about 6 days ago and implants. He was given steroids and also clindamycin and ibuprofen. H is last colonoscopy was about [address] Smith[address] He was advised after this is over to go sasha k to him to have his colonoscopy repeated in the light of the new findings. We do not have a colonos copy available at this moment. Allergies: AMOXICILLIN. Medical Problems: Bladder cancer, hypercholesterolemia, hypertensive disorder. Past Surgical History: Surgeries include tumor removed from the urinary bladder and also recent 6 de nture implants. Social History: He does not drink. He smoked cigarettes every now and then. Medications: Reviewed. Family History: Noncontributory. Review of Systems: Nausea, abdominal pain. Ten points otherwise unremarkable. Physical Examination: General: The patient is awake, alert, cooperative. HEENT: Pupils are equal and reactive. Anicteric. Neck: Supple. Chest: Clear. Abdomen: Left abdominal tenderness, mid abdomen and guarding. No rebound. Extremities: Good capillary refill. Rectal: Deferred. Laboratory Data: Blood work shows a WBC count of 18 with hemoglobin of 15.1 and platelets of 310. I NR is 1.08. BUN is 28, creatinine is 1.28, lipase 15. CAT scan of the abdomen and pelvis, interpret ed by radiologist as acute diverticulitis mid/proximal sigmoid colon with tiny amount of free air, pe rhaps corresponding to a localized microperforation. No evidence of an abscess, small trace of fluid on the pelvis, 2.5 cm infrarenal aortic aneurysm, 12.5 mm calcification in the left kidney. Assessment: This is a 68-year-old patient right now with what we believe could be perforated diverti culitis with contained perforation. The patient was admitted to the hospital, IV fluids bowel rest. We explained to him the options of emergent laparotomy, possible bowel resection, and colostomy with benefits, alternatives, and risks including, but not limited to infection, bleeding, damage to adjac ent structures, anesthesia complication, recurrence, myocardial infarction, and even . He also understands he may need a second surgery to see if it is possible to put it all back together. He ma y also require wound care obviously, so as much as he can, he wants conservative treatment, so in carey t case I explained to him the need for following Dr. Roy's recommendations, doing bowel rest, and co ntinue the antibiotics. Continue hydration. Also, this is a working diagnosis, so if he managed to get better without surgical intervention during this time, he still has to go back to his gastroenter ologist, Dr. Smith to make sure the colonoscopy is done to rule out any other possibility other than diverticulum for this problem. KIKE/REJI Voice ID: [id number] Report ID: [id number]
--- NOTE | 2024-03-22 06:52 | HP ---
Date of Admission: 03/21/2024 Chief Complaint: Abdominal pain. History Of Present Illness: This is a 68-year-old pleasant male patient who was doing fine in his normal usual state of health until yesterday. He started to have abdominal pain in the lower abdomen associated with some nausea, vomiting, and fever. Denies any hematemesis. Denies any blood in stool. The patient reports having some constipation lately. After he came into emergency room with this, he was evaluated and admitted to hospital with perforated acute diverticulitis problem. Allergies: TO AMOXICILLIN. Review of Systems: GI: As mentioned above. CONSTITUTIONAL: As mentioned above. All other systems reviewed and negative. Medications: List reviewed. Past Medical History: Significant for hypertension, hyperlipidemia. Past Surgical History: Unremarkable. Family History: Not contributory. Social History: Positive for smoking. Use of alcohol, negative. Physical Examination: VITAL SIGNS: Height 5 feet 11 inches, weight 164 pounds, temperature 97.2, pulse 89, respiratory rate 15, blood pressure 125/67, oxygen saturation 96% on room air. General: Awake, alert, oriented, not in distress. HEENT: Head atraumatic, normocephalic. Conjunctivae nonerythematous. Sclerae white. Mouth, no thrush or edema noted. Ears/Nose, no mass, lesion, discharge noted. Neck: Supple. No JVD, lymph nodes, bruit, thyromegaly noted. Lungs: Bilateral good equal air entry. Clear to auscultation. No rhonchi. No rales. Heart: Normal heart sounds, no murmur or gallop. Abdomen: Soft. Bowel sounds normal. No guarding, rigidity, distention. No hepatosplenomegaly. No bruit. The patient does have significant tenderness in lower abdomen. No rebound tenderness. Extremities: No leg edema. No calf tenderness. Skin: No rash, ulcer, cellulitis. Lymphatics: No lymph node enlargement in neck, supraclavicular, infraclavicular region. Neuro: No focal neurological deficit. Chest: Unremarkable. External Genitalia: Deferred. Rectal: Deferred. Laboratory Data: White count 18.2, hemoglobin 15.1, platelets 310. Sodium 137, potassium 4.2, chloride 106, bicarb 24, BUN 28, creatinine 1.28, glucose 141. Liver function test unremarkable. Lipase 50. Urinalysis negative. Chest x- ray, no acute cardiopulmonary changes. CAT scan of the abdomen with pelvis shows acute diverticulitis mid proximal sigmoid colon with tiny amount of free air perhaps corresponding localized microperforation. No evidence for abscess formation. Small trace of the fluid along the pelvis and 2.6 x 2.7 cm infrarenal abdominal aortic aneurysm Plan: We will go ahead and admit the patient to hospital for further evaluation and management of this problem. The patient is appropriate for inpatient and is expected to spend 2 midnights in hospital. General Surgery consultation will be obtained from Dr. Amado and I have discussed details with him. We will keep the patient n.p.o., continue maintenance IV fluid and empiric IV antibiotic Levaquin and Flagyl will be given per order. DVT prophylaxis will be given using Lovenox and SCD per order. Pain medication and nausea medication was ordered. Details and plan of treatment discussed with the patient. Total time spent 80 minutes including communication with the emergency room provider, review of current emergency room visit record, review of prior office record, communication with weight loss sales consultant, Dr. Amado, and performing today's evaluation and management. DULCE/MODL Voice ID: [id number] MTDD
[2024-03-22 07:29] LABS: Absolute Monocytes 1.1 K/uL (0.1-1.3); Absolute Neutrophil 18.7 K/uL (1.8-8.0); Basophils % 0.1 % (0-1.3); Hematocrit 37.2 % (39.6-49.0); Hemoglobin 12.3 g/dL (13.6-17.9); Lymphocytes % 4.8 % (15.3-44.8); MCH 30.2 pg (27.0-35.0); MCHC 33.1 g/dL (32.0-36.0); MCV 91.3 fL (80-100); MPV 9.6 fL (7.6-11.3); Monocytes % 5.2 % (3.3-12.3); Neutrophils % 89.9 % (41.7-73.7); Nucleated Red Blood Cells % 0.1 % (0-0); Platelets 238 thou/uL (152-406); RBC Red Blood Cell Count 4.07 M/uL (4.33-5.43); Red Cell Distribution Width 14.7 % (12.1-15.2)
[2024-03-22 07:43] LABS: Anion Gap 6.8 mEq/L (5.0-15.0); Potassium 3.8 mEq/L (3.5-5.1)
--- NOTE | 2024-03-22 11:47 | EKG ---
Test Date: 2024-03-21 Test Time: 05:19:49 Marketing Communication Manager: LANDON MEASUREMENT RESULTS: Intervals: Rate: 90 WV: 160 QRSD: 86 QT: 360 QTc: 440 Zamora: P: 73 WV: 160 QRS: 65 T: 53 INTERPRETIVE STATEMENTS: Sinus rhythm with premature atrial complexes Otherwise normal ECG Compared to ECG 12/22/2010 13:17:01 Atrial premature complex(es) now present Electronically Signed On 03-22-24 11:44:13 CDT by Denver Orourke
--- NOTE | 2024-03-22 14:00 | RAD REPORT ---
EXAM DESCRIPTION: RAD - Abdomen W Erect - 03/22/2024 11:37 am CLINICAL HISTORY: diverticulitis with microperforation COMPARISON: Abdomen Pelvis W Contrast dated 03/21/2024 TECHNIQUE: Single AP view of the abdomen. FINDINGS: Mildly prominent caliber of the small bowel loops in the central abdomen, with some air-fl uid levels. Largest small bowel caliber: 3.8 cm. No evidence of free air, or pneumatosis. No suspicio us calcifications. No significant bony abnormality. IMPRESSION: Mild small-bowel distention, which may represent ileus or low-grade obstruction.
--- NOTE | 2024-03-23 07:10 | PN ---
Date of Progress Note: 03/22/2024 Subjective: The patient was seen this morning for followup. He was lying in bed, not in any distres s. Denies any new complaints. Abdominal pain is better compared to yesterday. Has some degree of d iscomfort in the lower abdomen with some worsening of pain from time to time. No nausea. No vomitin g. He is passing gas per rectum. The patient is ambulating very well without any difficulty. Objective: Vital Signs: Reviewed. HEENT: Unremarkable. Lungs: Clear to auscultation. Heart: Sounds normal. Abdomen: Soft. Bowel sounds normal. Presence of tenderness in the lower half of the abdomen. No r ebound tenderness. No distention. Extremities: No leg edema. Impression: 1.Acute diverticulitis with contained perforation. 2.Hypertension. 3.Hyperlipidemia. Plan: We will go ahead and continue to keep him n.p.o. IV fluid will be continued. We will continu e current IV antibiotics per order. We will continue to follow with Dr. Amado, and at appropriate time we will start him on liquid diet when Dr. Amado allows him to do so. Ambulation was encoura ged. I will see him tomorrow for followup. DULCE/MODL Voice ID: [id number] Report ID: [id number]
[2024-03-23 07:31] LABS: Absolute Lymphocytes (CBC) 0.9 K/uL (0.7-4.9); Absolute Monocytes 1.3 K/uL (0.1-1.3); Absolute Neutrophil 17.7 K/uL (1.8-8.0); Basophils % 0.2 % (0-1.3); Eosinophils % 0.1 % (0-4.4); Hematocrit 37.7 % (39.6-49.0); Hemoglobin 12.6 g/dL (13.6-17.9); Lymphocytes % 4.5 % (15.3-44.8); MCH 30.4 pg (27.0-35.0); MCHC 33.4 g/dL (32.0-36.0); MCV 90.9 fL (80-100); MPV 8.9 fL (7.6-11.3); Monocytes % 6.4 % (3.3-12.3); Neutrophils % 88.8 % (41.7-73.7); Platelets 245 thou/uL (152-406); RBC Red Blood Cell Count 4.15 M/uL (4.33-5.43); Red Cell Distribution Width 14.6 % (12.1-15.2)
[2024-03-23 07:45] LABS: Magnesium 2.3 mg/dL (1.6-2.4)
--- NOTE | 2024-03-23 12:21 | RAD REPORT ---
EXAM DESCRIPTION: RAD - Abdomen W Erect - 03/23/2024 10:24 am CLINICAL HISTORY: hx of diverticulitis COMPARISON: Abdomen W Erect dated 03/22/2024 TECHNIQUE: Single AP view of the abdomen. FINDINGS: Persistent moderately dilated central abdominal small bowel, now measuring up to 4.6 cm in caliber. A few central abdominal air-fluid levels are present. No free air, or pneumatosis. No suspi cious calcifications. No significant bony abnormality. IMPRESSION: Persistent small bowel dilation with air-fluid levels which may reflect obstruction or i leus.
--- NOTE | 2024-03-23 13:55 | P.PN ---
Subjective Date of Service: 04/22/24 Chief Complaint: Diverticulitis, microperf Subjective: No new changes Review of Systems General: Unremarkable Eyes: Unremarkable ENT: Unremarkable Respiratory: Unremarkable Cardiovascular: Unremarkable Gastrointestinal: Abdominal Pain, Distention Genitourinary: Unremarkable Physical Examination - Vital Signs Temperature: 98.1 F Blood Pressure: 155/84 Pulse: 81 Respirations: 18 Pulse Ox (%): 100 - Physical Exam General: Alert, Oriented x3, Cooperative HEENT: PERRLA, EOMI Neck: Supple Gastrointestinal: Hypoactive, No rebound, Guarding Musculoskeletal: No erythema Integumentary: No rashes - Studies WBC 22 Assessment And Plan - Plan continue bowel rest iv abx abd xay
--- NOTE | 2024-03-23 14:02 | P.PN ---
Subjective Date of Service: 03/23/24 Chief Complaint: Diverticulitis, microperforation Subjective: Improving Review of Systems General: Unremarkable Eyes: Unremarkable ENT: Unremarkable Respiratory: Unremarkable Cardiovascular: Unremarkable Gastrointestinal: Abdominal Pain (better), Distention Physical Examination - Vital Signs Temperature: 98.1 F Blood Pressure: 155/84 Pulse: 81 Respirations: 18 Pulse Ox (%): 100 - Physical Exam General: Alert, In no apparent distress, Oriented x3 HEENT: Normocephalic, PERRLA Neck: Supple Respiratory: Normal air movement Cardiovascular: Normal pulses Gastrointestinal: No rebound, No guarding, Tenderness (mild better) Integumentary: No erythema, No warmth, No cyanosis Neurological: Normal speech Assessment And Plan - Plan iv abx abd xay if continue improvement, then clear liquid in am
--- NOTE | 2024-03-23 23:01 | PN ---
Date of Progress Note: 03/23/2024 Subjective: The patient was seen this morning for followup. No new complaints or problems reported by him. Overall, he feels a lot better, had several bowel movements overnight. Abdominal pain is be tter. No nausea, no vomiting. He is ambulating well. Objective: Vital signs: Reviewed. Hemodynamically stable. Afebrile. HEENT: Unremarkable. Lungs: Clear to auscultation. Heart: Sounds normal. Abdomen: Soft. Bowel sounds normal. No distention. No guarding. No rigidity. Presence of tender ness in lower abdomen, which is less today than yesterday. Extremities: No leg edema. Laboratory Data: White count 19.9, hemoglobin 12.6, platelets 245. Chemistry shows sodium 142, pota ssium 4, chloride 112, bicarb 27, BUN 20, creatinine 1.13, glucose 134. Impression: 1.Acute diverticulitis with perforation, contained. 2.Hypertension. 3.Hyperlipidemia. Plan: We will go ahead and continue current medication. Continue current antibiotic and IV fluid. The patient was encouraged to continue to ambulate. I did communicate with Dr. Amado today and he has evaluated the patient and he has allowed the patient to have some water and ice chips today and starting tomorrow to start the patient on clear liquid diet. I will see him tomorrow morning for followup. DULCE/MODL Voice ID: [id number] Report ID: [id number]
--- NOTE | 2024-03-24 11:07 | PN ---
Date of Progress Note: 03/24/2024 Subjective: The patient was seen this morning for followup. No new complaints or problems reported by him. He is feeling lot better. Abdominal pain has significantly improved. He has more or less j ust some mild discomfort, but not actual pain anymore. No nausea. No vomiting. He is having bowel movement and he says initially he had bowel movement about every 30 minutes or so, but now it is abou t every 3 hours. No bleeding. Physical Examination: Vital Signs: Reviewed. This morning, temperature 97.9, pulse 75, respiratory rate 16, blood pressur e 153/87. HEENT: Unremarkable. Lungs: Clear to auscultation. Heart: Sounds normal. Abdomen: Soft. Bowel sounds normal. No distention. No hepatosplenomegaly. No bruit. No rebound tenderness. The patient has very minimal tenderness in the right lower quadrant and suprapubic regio n upon deep palpation, and this is overall significantly better compared to last 2 days. Laboratory Data: There were no new labs this morning. Yesterday's blood work results reviewed. Impression: 1.Acute diverticulitis with microperforation. 2.Hypertension. 3.Anemia, unspecified. Plan: We will go ahead and continue current antibiotics and IV fluid. As of yesterday, Dr. Amado allowed the patient to have water and ice chips, and as of today we will start him on clear liquid d iet. I will see him tomorrow for followup, and over this weekend we will decide depending on how he tolerates the diet, we will make decision regarding progressing his diet from clear liquid to full li quid and then to soft diet. All these details were discussed with the patient. The patient remains on IV Levaquin and Flagyl and IV fluid. We will continue that. At appropriate time, plan is to discharge him to go home and [facility] possibility of discharge date is Wednesday or after that, but not before that. The patient was enc ouraged to continue to ambulate and details were discussed with Dr. Amado as well. I will see him tomorrow for followup. DULCE/MODL Voice ID: [id number] Report ID: [id number]
[2024-03-25 06:25] LABS: Absolute Eosinophils 0.3 K/uL (0-0.5); Absolute Lymphocytes (CBC) 1.2 K/uL (0.7-4.9); Absolute Monocytes 1.2 K/uL (0.1-1.3); Absolute Neutrophil 9.4 K/uL (1.8-8.0); Basophils % 0.3 % (0-1.3); Eosinophils % 2.8 % (0-4.4); Hematocrit 37.8 % (39.6-49.0); Hemoglobin 12.3 g/dL (13.6-17.9); Lymphocytes % 9.7 % (15.3-44.8); MCH 29.8 pg (27.0-35.0); MCHC 32.6 g/dL (32.0-36.0); MCV 91.4 fL (80-100); MPV 9.6 fL (7.6-11.3); Monocytes % 10.1 % (3.3-12.3); Neutrophils % 77.1 % (41.7-73.7); Nucleated Red Blood Cells % 0.1 % (0-0); Platelets 307 thou/uL (152-406); RBC Red Blood Cell Count 4.14 M/uL (4.33-5.43); Red Cell Distribution Width 14.5 % (12.1-15.2)
[2024-03-25 06:31] LABS: Anion Gap 8.9 mEq/L (5.0-15.0); Magnesium 2.2 mg/dL (1.6-2.4); Potassium 3.9 mEq/L (3.5-5.1)
[2024-03-25] MEDS: D5 0.9 NS 1,000 ML IV SCH (09:36)
--- NOTE | 2024-03-25 12:00 | RAD REPORT ---
EXAM DESCRIPTION: CT - Abdomen Pelvis Wo Contrast - 03/25/2024 11:29 am CLINICAL HISTORY: Abdominal pain. diverticulitis with microperforation COMPARISON: Abdomen Pelvis W Contrast dated 03/21/2024; Abdomen W Erect dated 03/23/2024; Thorax W/ Con dated 01/13/2024 TECHNIQUE: CT imaging of the abdomen and pelvis was performed without contrast. Solid organ, bowel a nd vascular assessment is limited due to lack of IV and oral contrast. All CT scans are performed using dose optimization technique as appropriate and may include automated exposure control or mA/KV adjustment according to patient size. FINDINGS: The lower lung queen are clear. The liver, spleen, pancreas, adrenal glands and kidneys are within normal limits for a limited non-co ntrast examination.14 mm cortical calcification inferior left kidney. Fluid and air-filled small bowel loops are present throughout the abdomen dilated up to 4 cm. Mild f ree fluid is seen in the abdomen pelvis. Sigmoid diverticulosis coli noted. No free air seen. Mild lumbar degenerative changes. IMPRESSION: Diffusely dilated small bowel is present containing fluid and air suggesting diffuse aundrea namic ileus. Mild free fluid is present. No significant pneumoperitoneum. A limited non-contrast examination was performed as detailed.
--- NOTE | 2024-03-25 12:49 | P.PN ---
Subjective Date of Service: 03/25/24 Chief Complaint: Diverticulitis, microperforation Subjective: Tolerating diet, Improving, Doing well Review of Systems Cardiovascular: Unremarkable Gastrointestinal: No Distention, As per HPI Physical Examination - Vital Signs Temperature: 97.4 F Blood Pressure: 148/85 Pulse: 72 Respirations: 16 Pulse Ox (%): 98 - Physical Exam General: Alert, In no apparent distress, Oriented x3, Cooperative HEENT: Normocephalic, EOMI Neck: Supple Respiratory: Normal air movement Gastrointestinal: Soft and benign Neurological: Normal speech Assessment And Plan - Plan iv abx ct scan result pending if continue improvement, then advance diet
--- NOTE | 2024-03-25 16:40 | PN ---
Date of Progress Note: 03/25/2024 Subjective: The patient was seen this morning for followup. No new complaints or problems reported by the patient. He was feeling much better. Abdominal pain has significantly improved to the extent that he has not used any pain medication in last 48-72 hours. The patient is having bowel movement. No nausea, no vomiting. No blood in stool. Objective: Vital signs: Reviewed. He is tolerating Clear liquid diet very well. HEENT: Unremarkable. Lungs: Clear to auscultation. Heart: Sounds normal. Abdomen soft. Bowel sounds normal. No guarding, rigidity, tenderness, distention. Extremities: No leg edema. Laboratory Data: White count 12.1, hemoglobin 12.3, platelets 307. Sodium 142, potassium 3.9, chlor vianey 112, bicarb 25, BUN 18, creatinine 0.87, glucose 123. Impression: 1.Microperforation. 2.Hypertension. Plan: We will go ahead and continue current antibiotic. Continue IV fluid at 50 cc/hour per order. CAT scan of the abdomen and pelvis without contrast was ordered today. We will follow up on that an d once we see that result, then we will change diet to full liquid diet. Plan is to advance it to so ft diet tomorrow if he tolerates and then possible discharge tomorrow and details were discussed with general surgeon, Dr. Amado. DULCE/REJI Voice ID: [id number] Report ID: [id number]
[2024-03-26 09:30] VITALS: O2SAT 97
[2024-03-26 12:52] VITALS: BP 149/83; TEMP 97.6
--- NOTE | 2024-03-28 06:29 | DS ---
Date of Discharge: 03/26/2024 Disposition: Discharged to go home. Physical Examination: HEENT: Unremarkable. Lungs: Clear to auscultation. Heart: Sounds normal. Abdomen: Soft. Bowel sounds normal. No guarding, rigidity, tenderness, distention. Extremities: No leg edema. Discharge Medications And Instructions: Continue all prior home medications. Take following new med ications: 1.Levaquin 500 mg daily for 10 days with food. 2.Metronidazole 500 mg 3 times a day with food for 10 days. 3.Followup at my office on 04/03/2024 and call office for appointment. 4.Avoid nuts, popcorn, tomatoes, strawberries, etc. Laboratory Data: Upon admission, sodium 137, potassium 4.2, chloride 106, bicarb 24, BUN 28, creatin ine 1.28, glucose 141. Liver function tests unremarkable. Lipase 15. Repeat chemistry yesterday, s odium 142, potassium 3.9, chloride 112, bicarb 25, BUN 18, creatinine 0.87, glucose 123. For CBC upo n admission, white count 18.2, hemoglobin 15.1, platelets 310. Yesterday, white count 12.1, hemoglob in 12.3, platelets 307. Upon admission, CAT scan of the abdomen and pelvis done in emergency room sh ows evidence of acute diverticulitis with microperforation which was contained. There was no evidenc e of free air. CAT scan also showed small infrarenal abdominal aortic aneurysm about 2.7 x 2.5 cm in size and evidence of what it looks like small kidney stone in the left kidney. Hospital Course: This is a 68-year-old very pleasant male patient, admitted to the hospital after he came into emergency room with complaints of abdominal pain. Please see dictated H and P for more in formation. After the patient was evaluated in the emergency room, he was admitted to the hospital wi th acute diverticulitis with microperforation which was contained and there was no evidence of any fr ee air. The patient was admitted to the hospital. Initially, he was kept n.p.o., IV fluid and IV an tibiotic which was Levaquin and metronidazole were started. General surgeon, Dr. Amado, was consu lted. The patient did not require any surgical intervention and with conservative treatment, his con dition improved. After keeping him n.p.o. initially as his condition improved, Dr. Amado allowed him to start some ice chips and water and after he tolerated that, we started him on clear liquid t and we slowly advanced diet on a daily basis as he tolerated diet very well. His abdominal pain baker s improved significantly to the extent that for last 3 days or so, he has not required any pain medic ations at all. Overall, the patient's condition improved. He started ambulating very well. He was instructed that he will need to have repeat colonoscopy probably in about couple of months and will h ave the patient follow up with his saw filer for this on outpatient basis. I have given him instruction about avoiding certain type of food, for example, nuts, popcorn, tomatoes, strawberries, etc. He should avoid that to reduce chances of recurrent diverticulitis problem. Final Diagnoses: 1.Acute diverticulitis with perforation. 2.Hypertension. 3.Hyperlipidemia. 4.Pulmonary nodule. Total time spent today was 40 minutes. DULCE/MODL Voice ID: [id number] Report ID: [id number]
== END 2024-03-26 13:11 | disposition home or self-care (01) | DRG 392 ==
LOC: ER 01:41 → ERHOLD 04:31 → 3RD-ICU 06:03 → 4TH 11:31
PROVIDERS: ADMIT Internal Medicine; ATTEND Internal Medicine
DX: K57.20 Diverticulitis of large intestine with perforation and abscess without bleeding (principal); I10 Essential (primary) hypertension; K59.00 Constipation, unspecified; E78.00 Pure hypercholesterolemia, unspecified; D64.9 Anemia, unspecified; K52.9 Noninfective gastroenteritis and colitis, unspecified; F17.210 Nicotine dependence, cigarettes, uncomplicated; R91.8 Other nonspecific abnormal finding of lung field; Z88.1 Allergy status to other antibiotic agents; Z85.51 Personal history of malignant neoplasm of bladder
CPT/HCPCS: 36415; 71045; 74019; 74176; 74177; 80048; 80053; 81001; 83605; 83690; 83735; 85025; 85610; 86850; 86900; 86901; 87040; 93005; 99285; J0696; J1650; J2405; J2765; J7030; J7042; J7120; P9047; Q9967

== ENCOUNTER 2024-04-19 09:59 | Emergency (ER) | payer OTHER, MEDICARE ==
[2024-04-19 11:18] LABS: Absolute Basophils 0.1 K/uL (0-0.5); Absolute Lymphocytes (CBC) 1.7 K/uL (0.7-4.9); Absolute Neutrophil 8.2 K/uL (1.8-8.0); Basophils % 0.6 % (0-1.3); Eosinophils % 0.2 % (0-4.4); Hematocrit 41.9 % (39.6-49.0); Hemoglobin 13.7 g/dL (13.6-17.9); Lymphocytes % 15.3 % (15.3-44.8); MCH 29.9 pg (27.0-35.0); MCHC 32.7 g/dL (32.0-36.0); MCV 91.6 fL (80-100); MPV 8.4 fL (7.6-11.3); Monocytes % 9.2 % (3.3-12.3); Neutrophils % 74.7 % (41.7-73.7); Platelets 354 thou/uL (152-406); RBC Red Blood Cell Count 4.57 M/uL (4.33-5.43); Red Cell Distribution Width 14.4 % (12.1-15.2)
--- NOTE | 2024-04-19 11:29 | RAD REPORT ---
EXAM DESCRIPTION: CT - Abdomen Pelvis W Contrast - 04/19/2024 11:13 am CLINICAL HISTORY: Abdominal pain COMPARISON: February 2024 TECHNIQUE: Computed axial tomography of the abdomen pelvis was obtained. 100 cc Isovue-300 was admin istered intravenously. Oral contrast was not requested which limits evaluation of bowel and appendix All CT scans are performed using dose optimization technique as appropriate and may include automated exposure control or mA/KV adjustment according to patient size. FINDINGS: The liver, spleen, pancreas, adrenal and right kidney appear unremarkable 12 millimeter calcification lower pole left kidney unchanged. No hydronephrosis. Diverticula stem from the colon. 4.9 centimeter fluid collection containing air is present within the posterior pelvis midline abuttin g the sigmoid colon. Fluid and air extends superiorly and to the left measuring approximately 7.5 x 2 .5 centimeters. Both of these represent abscesses. No free air IMPRESSION: Pelvic abscesses are sequela of prior diverticulitis
[2024-04-19 12:13] LABS: Specific Gravity > 1.030 (1.005-1.030); Sqamous Epithelial None Seen /HPF (None Seen); Urine Bacteria None Seen /HPF (<20); Urine Bilirubin NEGATIVE (Negative); Urine Blood Trace (Negative); Urine Clarity Clear (Clear); Urine Color Light-Yellow (Yellow); Urine Culture Reflex Order NOT NEEDED; Urine Glucose NEGATIVE (Negative); Urine Ketones NEGATIVE (Negative); Urine Microscopic Reflex YN ORDER UMIC; Urine Mucus Slight /HPF (None Seen); Urine Nitrite NEGATIVE (Negative); Urine Protein NEGATIVE (Negative); Urine RBC <5 /HPF (None Seen); Urine Urobilinogen Normal (Normal); Urine WBC None Seen /HPF (<5); Urine pH 6.5 (5.0-7.0)
[2024-04-19 12:22] LABS: Albumin 3.4 g/dL (3.4-5.0); Albumin/Globulin Ratio 0.8 (1.1-1.8); Anion Gap 7.2 mEq/L (5.0-15.0); Bilirubin Total 0.3 mg/dL (0.2-1.0); Globulin 4.1 g/dL (2.3-3.5); Potassium 3.2 mEq/L (3.5-5.1); Protein, Total 7.5 g/dL (6.4-8.2)
[2024-04-19] MEDS ORDERED: CIPROFLOXACIN 400mg IV 400 MG/200 ML BAG IV ONE (12:29)
[2024-04-19] MEDS ORDERED: METRONIDAZOLE 500mg IVPB 500 MG/100 ML BAG IV ONE (12:29)
--- NOTE | 2024-04-19 12:40 | ER ---
Nurse's Notes [facility] Name: Juan Puga Age: 68 yrs Sex: Male : 1955 Arrival Date: 04/19/2024 Time: 09:59 Bed 6 Private MD: Diagnosis: Pelvic abscess;hypertension Presentation: 04/19 10:11 Chief complaint: Patient states: was admitted to hospital in February for bowel blockage , iw and has been having low grade fever, fatigue and night sweats for a few weeks. Coronavirus screen: Client presents with at least one sign or symptom that may indicate coronavirus-19. Ebola Screen: No symptoms or risks identified at this time. Initial Sepsis Screen: Does the patient meet any 2 criteria? No. Patient's initial sepsis screen is negative. Does the patient have a suspected source of infection? No. Patient's initial sepsis screen is negative. Risk Assessment: Do you want to hurt yourself or someone else? Patient reports no desire to harm self or others. Onset of symptoms was March 2024. 10:11 Method Of Arrival: Ambulatory iw 10:11 Acuity: CESILIA 3 iw Historical: - Allergies: 10:13 Amoxicillin; iw - PMHx: 10:13 Bladder cancer; DENTAL CARIES; Hypercholesterolemia; Hypertensive disorder; iw - PSHx: 10:13 Tumor removed from Bladder; iw - Immunization history:: Adult Immunizations not up to date. - Infectious Disease History:: Denies. - Social history:: Smoking status: Patient reports the use of cigarette tobacco products, smokes one-half pack cigarettes per day. Screenin:58 [facility] ED Fall Risk Assessment (Adult) History of falling in the last 3 months, ph including since admission No falls in past 3 months (0 pts) Confusion or Disorientation No (0 pts) Intoxicated or Sedated No (0 pts) Impaired Gait No (0 pts) Mobility Assist Device Used No (0 pt) Altered Elimination No (0 pt) Score/Fall Risk Level 0 - 2 = Low Risk Oriented to surroundings, Maintained a safe environment, Hourly rounding (assess needs \T\ fall precautionary measures) done. Abuse screen: Denies threats or abuse. Denies injuries from another. Nutritional screening: No deficits noted. Tuberculosis screening: No symptoms or risk factors identified. Assessment: 11:59 General: Appears in no apparent distress. comfortable, Behavior is calm, cooperative, ph appropriate for age, Reports fever for > 3 days. Pain: Denies pain. Neuro: Level of Consciousness is awake, alert, obeys commands, Oriented to person, place, time, situation. Cardiovascular: Reports fatigue, Capillary refill < 3 seconds in bilateral fingers Patient's skin is warm and dry. Respiratory: Airway is patent Respiratory effort is even, unlabored, Respiratory pattern is regular, symmetrical. GI: Patient currently denies abdominal pain, nausea, vomiting. : No signs and/or symptoms were reported regarding the genitourinary system. Derm: Skin is pink, warm \T\ dry. 14:00 Reassessment: Patient appears in no apparent distress at this time. Patient and/or ph family updated on plan of care and expected duration. Pain level reassessed. Patient is alert, oriented x 3, equal unlabored respirations, skin warm/dry/pink. Attempted to call report to [facility]. 14:56 Reassessment: Patient appears in no apparent distress at this time. Patient and/or ph family updated on plan of care and expected duration. Pain level reassessed. Patient is alert, oriented x 3, equal unlabored respirations, skin warm/dry/pink. Report called to ZAYDA Bain at [facility], awaiting EMS for transport. 15:57 Reassessment: Patient appears in no apparent distress at this time. Patient and/or ph family updated on plan of care and expected duration. Pain level reassessed. Patient is alert, oriented x 3, equal unlabored respirations, skin warm/dry/pink. Vital Signs: 10:11 BP 157 / 82; Pulse 92; Resp 16; Temp 99; Pulse Ox 100% on R/A; Weight 70.31 kg; Height iw 5 ft. 11 in. ; 13:45 BP 157 / 86; Pulse 91; Resp 16; Pulse Ox 99% on R/A; ph 14:57 BP 148 / 73; Pulse 91; Resp 18; Pulse Ox 98% on R/A; ph 10:11 Body Mass Index 21.62 (70.31 kg, 180.34 cm) iw ED Course: 10:04 Patient arrived in ED. ra3 10:13 Triage completed. iw 10:13 Arm band placed on. iw 10:14 Matson, Ronni, DO is Attending Physician. ms3 10:39 Marge Shah, RN is Primary Nurse. ph 11:05 Initial lab(s) drawn, by me, sent to lab. First set of blood cultures drawn by me, ph Second set of blood cultures drawn by me. Inserted saline lock: 20 gauge in right antecubital area, using aseptic technique. Blood collected. Flushed with 10 mL NS. 11:14 CT Abd/Pelvis - IV Contrast Only In Process Unspecified. EDMS 11:58 Patient has correct armband on for positive identification. Placed in gown. Bed in low ph position. Call light in reach. Side rails up X 1. Pulse ox on. NIBP on. 12:07 Urinalysis w/ reflexes Sent. me1 12:07 Urine collected: clean catch specimen, clear. me1 12:46 initiated transfer to [facility]. bd 13:18 accepted in transfer to [facility] by dr Parra, admin approval given by Kevin Manuel pt going to 508. 14:57 No provider procedures requiring assistance completed. Patient transferred, IV remains ph in place. 15:09 pt to be transported by [facility]. bd Administered Medications: 12:43 Drug: metroNIDAZOLE IVPB 500 mg 100 ml IVPB at 200 ml/hr once over 30 mins Volume: 100 ph ml; Route: IVPB; Rate: 200 ml/hr; Infused Over: 30 mins; Site: right antecubital; 13:08 Follow up: Response: No adverse reaction; IV Status: Completed infusion ph 12:58 Drug: Ciprofloxacin IVPB 400 mg 200 ml IVPB once over 60 mins Volume: 200 ml; Route: ph IVPB; Infused Over: 60 mins; Site: right antecubital; 14:00 Follow up: IV Status: Completed infusion ph Medication: 11:58 VIS not applicable for this client. ph Outcome: 12:39 ER care complete, transfer ordered by . ms3 15:57 Transferred by [facility] [place]. to [facility], Transfer form ph completed. X-rays sent w/ patient. 15:57 Condition: good 15:57 Instructed on the need for transfer, 15:57 Patient left the ED. ph Signatures: Dispatcher [employer] EDMS Vanessa Francis bd Alberta Olguin RN RN iw Marge Shah, RN RN ph Ronni Matson DO DO ms3 Jemma Stone RN RN me1 Shira Griffith ra3 Corrections: (The following items were deleted from the chart) 10:14 10:11 BP 157 / 82; Pulse 92bpm; Resp 16bpm; Pulse Ox 100% RA; Temp 99F; iw iw
--- NOTE | 2024-04-19 12:40 | EDPHYS ---
Physician Documentation [facility] Name: Juan Puga Age: 68 yrs Sex: Male : 1955 Arrival Date: 04/19/2024 Time: 09:59 Bed 6 Private MD: ED Physician Ronni Matson HPI: 04/19 10:40 This 68 yrs old Male presents to ER via Ambulatory with complaints of Fever - fatigue. ms3 10:40 68-year-old male with past medical history of bladder cancer, dental caries, ms3 hyperlipidemia, hypertension presents to the emergency department for 1 month history of fatigue, low-grade fever, night sweats. Patient recently admitted for diverticulitis. Patient also notes in February he had a dental surgery. Patient presents from his primary care physician's office, Dr. Roy.. Historical: - Allergies: 10:13 Amoxicillin; iw - PMHx: 10:13 Bladder cancer; DENTAL CARIES; Hypercholesterolemia; Hypertensive disorder; iw - PSHx: 10:13 Tumor removed from Bladder; iw - Immunization history:: Adult Immunizations not up to date. - Infectious Disease History:: Denies. - Social history:: Smoking status: Patient reports the use of cigarette tobacco products, smokes one-half pack cigarettes per day. ROS: 10:40 Cardiovascular: Negative for chest pain, and palpitations. Respiratory: Negative for ms3 shortness of breath, cough, wheezing, and pleuritic chest pain, Abdomen/GI: Negative for abdominal pain, nausea, vomiting, diarrhea, and constipation, MS/Extremity: Negative for injury and deformity, Skin: Negative for injury, rash, and discoloration, 10:40 Constitutional: Positive for chills, fever, malaise, Exam: 10:40 Constitutional: This is a well developed, well nourished patient who is awake, alert, ms3 and in no acute distress. Head/Face: Normocephalic, atraumatic. Chest/axilla: Normal chest wall appearance and motion. Nontender with no deformity. Cardiovascular: Regular rate and rhythm with a normal S1 and S2. No gallops, murmurs, or rubs. Normal PMI, no JVD. No pulse deficits. Respiratory: Lungs have equal breath sounds bilaterally, clear to auscultation and percussion. No rales, rhonchi or wheezes noted. No increased work of breathing, no retractions or nasal flaring. Abdomen/GI: Soft, non-tender, with normal bowel sounds. No distension or tympany. No guarding or rebound. No evidence of tenderness throughout. Skin: Warm, dry with normal turgor. Normal color with no rashes, no lesions, and no evidence of cellulitis. MS/ Extremity: Pulses equal, no cyanosis. Neurovascular intact. Full, normal range of motion. 13:08 ECG was reviewed by the Attending Physician. ms3 Vital Signs: 10:11 BP 157 / 82; Pulse 92; Resp 16; Temp 99; Pulse Ox 100% on R/A; Weight 70.31 kg; Height iw 5 ft. 11 in. ; 13:45 BP 157 / 86; Pulse 91; Resp 16; Pulse Ox 99% on R/A; ph 14:57 BP 148 / 73; Pulse 91; Resp 18; Pulse Ox 98% on R/A; ph 10:11 Body Mass Index 21.62 (70.31 kg, 180.34 cm) iw MDM: 10:36 Patient medically screened. ms3 10:40 Differential diagnosis: viral Infection, bacterial infection, URI, pneumonia UTI. ms3 Management of patient was discussed with the following: Primary Care Provider: Discussed case with patient's primary care physician, Dr. Roy and he would like patient to have blood work, urinalysis, chest x-ray, CT abdomen pelvis, 4 sets of blood cultures.. 19:15 Data reviewed: vital signs, nurses notes, lab test result(s), radiologic studies, CT ms3 scan, and as a result, I will discharge patient. Consideration of Admission/Observation Patient transferred to [facility]. I considered the following discharge prescriptions or medication management in the emergency department Medications were administered in the Emergency Department. See MAR. Counseling: I had a detailed discussion with the patient and/or guardian regarding the historical points, exam findings, and any diagnostic results supporting the discharge/admit diagnosis, lab results, radiology results, the need to transfer to another facility, [facility] does not immediately have the required specialist. ED course: Discussed necessity for transfer with patient. Patient understands agrees with plan. All questions were answered. 04/19 10:38 Order name: Blood Culture Adult (2) ms3 04/19 10:38 Order name: CBC with Diff; Complete Time: 12:16 ms3 04/19 10:38 Order name: CMP; Complete Time: 12:55 ms3 04/19 10:38 Order name: Lactate w/ 2H reflex if indic.; Complete Time: 12:16 ms3 04/19 10:38 Order name: Urinalysis w/ reflexes; Complete Time: 12:16 ms3 04/19 10:42 Order name: CT Abd/Pelvis - IV Contrast Only ms3 04/19 10:38 Order name: EKG; Complete Time: 10:39 ms3 04/19 10:38 Order name: Accucheck; Complete Time: 11:57 ms3 04/19 10:38 Order name: Cardiac monitoring; Complete Time: 12:19 ms3 04/19 10:38 Order name: EKG - Nurse/Tech; Complete Time: 12:19 ms3 04/19 10:38 Order name: IV Saline Lock - Large Bore; Complete Time: 11:57 ms3 04/19 10:38 Order name: Labs collected and sent; Complete Time: 11:57 ms3 04/19 10:38 Order name: O2 Per Protocol; Complete Time: 11:57 ms3 04/19 10:38 Order name: O2 Sat Monitoring; Complete Time: 11:57 ms3 04/19 10:38 Order name: Vital Signs; Complete Time: 11:57 ms3 EC:08 Rate is 76 beats/min. Rhythm is regular. QRS [place] is Normal. CT interval is normal. QRS ms3 interval is normal. Clinical impression: Normal ECG. Interpreted by me. Reviewed by me. Administered Medications: 12:43 Drug: metroNIDAZOLE IVPB 500 mg 100 ml IVPB at 200 ml/hr once over 30 mins Volume: 100 ph ml; Route: IVPB; Rate: 200 ml/hr; Infused Over: 30 mins; Site: right antecubital; 13:08 Follow up: Response: No adverse reaction; IV Status: Completed infusion ph 12:58 Drug: Ciprofloxacin IVPB 400 mg 200 ml IVPB once over 60 mins Volume: 200 ml; Route: ph IVPB; Infused Over: 60 mins; Site: right antecubital; 14:00 Follow up: IV Status: Completed infusion ph Disposition Summary: 04/19/24 12:39 Transfer Ordered Notes: Transfer Location: [facility] ms3 Reason: Higher level of care ms3 Condition: Stable ms3 Problem: new ms3 Symptoms: are unchanged ms3 Accepting Physician: Dr Donna Parra(04/19/24 15:57) ph Diagnosis - Pelvic abscess ms3 - hypertension ms3 Forms: - Medication Reconciliation Form ms3 - SBAR form ms3 Signatures: Dispatcher [employer] Alberta Stanley RN RN Marge Shah RN RN Ronni Matson, DO ms3 Corrections: (The following items were deleted from the chart) 15:57 12:39 Dr Donna Parra ms3 ph
[2024-04-19 16:01] VITALS: TEMP 99
[2024-04-19 16:03] VITALS: BP 148/73; O2SAT 98
== END 2024-04-19 15:57 | disposition short-term general hospital (02) ==
LOC: ER 09:59
DX: K65.1 Peritoneal abscess (principal); I10 Essential (primary) hypertension; Z85.51 Personal history of malignant neoplasm of bladder; F17.210 Nicotine dependence, cigarettes, uncomplicated
CPT/HCPCS: 87040 ×2; 85025; 81001; 36415; 83605; 80053; 74177; Q9967; J0744